=== PATIENT | male | born 1980 | race Asian ===

== ENCOUNTER 2024-05-28 15:39 | Emergency (ER) | payer OTHER ==
[~2024-05-28] VITALS: Ht 157.5 cm; Wt 63.5 kg
[2024-05-28 15:50] VITALS: BP_SYST 130; PULSE 85; RESP 18; TEMP 98.3; O2SAT 98
== END 2024-05-28 19:33 | disposition home or self-care (01) ==
LOC: SED 15:39
DX: S09.90XA Unspecified injury of head, initial encounter (principal); W50.0XXA Accidental hit or strike by another person, initial encounter; Y93.89 Activity, other specified; Y92.89 Other specified places as the place of occurrence of the external cause; Y99.8 Other external cause status
CPT/HCPCS: 70450-TC; 99284